=== PATIENT | male | born 1990 | race Caucasian/White ===

== ENCOUNTER 2017-11-06 00:35 | Inpatient (IN) | payer OTHER ==
[~2017-11-06] VITALS: Ht 180.3 cm; Wt 79.5 kg
[2017-11-06 01:46] LABS: AMPHET/METH SCREEN,URINE NEGATIVE (NEGATIVE); BARBITURATE SCREEN, URINE NEGATIVE (NEGATIVE); BENZODIAZEPINES SCREEN,URINE NEGATIVE (NEGATIVE); CANNABINOID SCREEN,URINE NEGATIVE (NEGATIVE); COCAINE SCREEN,URINE NEGATIVE (NEGATIVE); METHADONE SCREEN, URINE NEGATIVE (NEGATIVE); OPIATE SCREEN,URINE NEGATIVE (NEGATIVE)
[2017-11-06 01:47] LABS: PHENCYCLIDINE SCREEN,URINE NEGATIVE (NEGATIVE)
[2017-11-06 02:04] LABS: BASOPHILS % (AUTO) 0.5 % (0.0-2.0); EOSINOPHILS % (AUTO) 0.4 % (1.0-6.0); HEMATOCRIT 40.6 % (41-53); HEMOGLOBIN 14.1 g/dL (13.5-17.5); LYMPHOCYTES # (AUTO) 2.1 K/uL (1.0-4.8); MEAN CORPUSCULAR HEMOGLOBIN 31.8 pg (26.0-34.0); MEAN CORPUSCULAR HGB CONC 34.6 G/dL (31.0-37.0); MEAN CORPUSCULAR VOLUME 92 fL (80-100); MONOCYTES # (AUTO) 0.6 K/uL (0.1-1.0); MONOCYTES % (AUTO) 4.8 % (2.0-9.0); NEUTROPHILS # (AUTO) 9.5 K/uL (1.8-7.7); NEUTROPHILS % (AUTO) 77.3 % (40.0-70.0); PLATELET COUNT (AUTO) 206 K/uL (150-450); RED BLOOD CELL COUNT(AUTO) 4.42 MIL/uL (4.50-5.90); RED CELL DISTRIBUTION WIDTH 14.1 % (11.5-14.5)
[2017-11-06 02:14] LABS: ANION GAP 6 mmol/L (8-16); CALCIUM, TOTAL 8.9 mg/dL (8.8-10.5); CARBON DIOXIDE 29 mmol/L (22-29); CHLORIDE 103 mmol/L (98-107); CREATININE 0.95 mg/dL (0.60-1.30); GLOMERULAR FILTR. RATE CALC > 60 mL/min (>60); GLUCOSE,RANDOM 94 mg/dL (70-110); POTASSIUM 4.3 mmol/L (3.5-5.1); SODIUM SERUM 138 mmol/L (136-145); UREA NITROGEN, BLOOD 19 mg/dL (7-18)
[2017-11-06 02:20] LABS: ALANINE AMINOTRANSFERASE 35 U/L (12-78); ALBUMIN 4.2 g/dL (3.4-5.0); ALKALINE PHOSPHATASE 55 U/L (46-116); ASPARTATE AMINOTRANSFERASE 28 U/L (15-37); BILIRUBIN,TOTAL 0.7 mg/dL (0.1-1.0); TOTAL PROTEIN, SERUM 6.9 g/dL (6.4-8.2)
[2017-11-06] MEDS ORDERED: HALOPERIDOL 5 MG TABLET PO PRN (04:45)
[2017-11-06] MEDS ORDERED: LORazepam 2 MG TABLET PO PRN (04:45)
[2017-11-06] MEDS ORDERED: ZOLPIDEM TARTRATE 10 MG TABLET PO PRN (04:45)
[2017-11-06 06:26] VITALS: BP 124/88
[2017-11-06 06:27] VITALS: BP 124/88
[2017-11-06 06:29] VITALS: BP 124/88
[2017-11-06 08:02] VITALS: BP 124/76
[2017-11-06] MEDS ORDERED: ONDANSETRON HCL 4 MG TABLET PO PRN (11:30)
[2017-11-06] MEDS ORDERED: ACETAMINOPHEN 325 MG TABLET PO PRN (11:30)
[2017-11-06] MEDS ORDERED: LOPERAMIDE HCL 2 MG CAPSULE PO PRN (11:30)
[2017-11-06] MEDS ORDERED: CloNIDine HCL 0.1 MG TABLET PO PRN (11:30)
[2017-11-06] MEDS ORDERED: ALBUTEROL SULFATE HFA 90 MCG/PUFF 8 GM INHALER IH PRN (11:30)
[2017-11-06] MEDS ORDERED: DOCUSATE SODIUM 100 MG CAPSULE PO PRN (11:30)
[2017-11-06] MEDS ORDERED: PETROLATUM,WHITE 71 GM JELLY TP PRN (11:30)
[2017-11-06] MEDS ORDERED: MAGNESIUM HYDROXIDE SUSPENSION 30 ML UDCUP PO PRN (11:30)
[2017-11-06] MEDS ORDERED: MAG HYDROX/AL HYDROX/SIMETH ES 30 ML SUSPENSION UDCUP PO PRN (11:30)
[2017-11-06] MEDS ORDERED: IBUPROFEN 400 MG TABLET PO PRN (11:30)
[2017-11-06 16:02] VITALS: BP 118/75
[2017-11-06] MEDS ORDERED: ARIP5TAB8 PO (16:33)
[2017-11-06] MEDS ORDERED: MIRT15TA98 PO (16:33)
[2017-11-06] MEDS ORDERED: MIRTAZAPINE 15 MG TABLET PO SCH (21:00)
[2017-11-07] MEDS ORDERED: ARIPiprazole 5 MG TABLET PO SCH (09:00)
[2017-11-07] MEDS ORDERED: NICOTINE 14 MG/24 HOUR PATCH TD SCH (09:00)
[2017-11-07 09:17] LABS: APPEARANCE,URINE CLEAR (CLEAR); BILIRUBIN,URINE NEGATIVE (NEGATIVE); GLUCOSE, URINE (UA) NEGATIVE (NEGATIVE); KETONES,URINE NEGATIVE (NEGATIVE); LEUKOCYTE ESTERASE ,URINE NEGATIVE (NEGATIVE); NITRATE,URINE NEGATIVE (NEGATIVE); OCCULT BLOOD,URINE NEGATIVE (NEGATIVE); PROTEIN,URINE NEGATIVE (NEGATIVE); UROBILINOGEN,URINE 0.2 mg/dL (<=1.0)
== END 2017-11-06 21:35 | disposition short-term general hospital (02) | DRG 885 ==
LOC: EMS 00:37 → B2X 04:30
PROVIDERS: ADMIT Psychiatry & Neurology Psychiatry; ATTEND Psychiatry & Neurology Psychiatry
DX: F33.3 Major depressive disorder, recurrent, severe with psychotic symptoms (principal); R45.851 Suicidal ideations; Z81.8 Family history of other mental and behavioral disorders; F60.3 Borderline personality disorder; F19.10 Other psychoactive substance abuse, uncomplicated; F41.9 Anxiety disorder, unspecified; D72.829 Elevated white blood cell count, unspecified; F12.90 Cannabis use, unspecified, uncomplicated; Z72.89 Other problems related to lifestyle; Z71.51 Drug abuse counseling and surveillance of drug abuser
CPT/HCPCS: 99285; G0480

== ENCOUNTER 2019-02-02 22:44 | Emergency (ER) | payer OTHER ==
[~2019-02-02] VITALS: Ht 177.8 cm; Wt 80.0 kg
[~2019-02-02 22:44] MED LIST: ARIP5TAB8 PO; MIRT15TA98 PO
[2019-02-02 23:31] LABS: BASOPHILS % (AUTO) 0.9 % (0.0-2.0); EOSINOPHILS % (AUTO) 0.4 % (1.0-6.0); HEMATOCRIT 42.7 % (41-53); HEMOGLOBIN 14.1 g/dL (13.5-17.5); LYMPHOCYTES # (AUTO) 2.1 K/uL (1.0-4.8); LYMPHOCYTES % (AUTO) 14.8 % (22.0-44.0); MEAN CORPUSCULAR HEMOGLOBIN 31.4 pg (26.0-34.0); MEAN CORPUSCULAR HGB CONC 33.2 G/dL (31.0-37.0); MEAN CORPUSCULAR VOLUME 95 fL (80-100); MONOCYTES # (AUTO) 0.9 K/uL (0.1-1.0); MONOCYTES % (AUTO) 6.2 % (2.0-9.0); NEUTROPHILS # (AUTO) 10.8 K/uL (1.8-7.7); NEUTROPHILS % (AUTO) 77.7 % (40.0-70.0); PLATELET COUNT (AUTO) 250 K/uL (150-450); RED BLOOD CELL COUNT(AUTO) 4.51 MIL/uL (4.50-5.90); RED CELL DISTRIBUTION WIDTH 13.8 % (11.5-14.5)
[2019-02-02 23:38] LABS: ANION GAP 6 mmol/L (8-16); CALCIUM, TOTAL 9.1 mg/dL (8.8-10.5); CARBON DIOXIDE 28 mmol/L (22-29); CHLORIDE 101 mmol/L (98-107); CREATININE 1.11 mg/dL (0.60-1.30); GLOMERULAR FILTR. RATE CALC > 60 mL/min (>60); GLUCOSE,RANDOM 98 mg/dL (70-110); POTASSIUM 4.7 mmol/L (3.5-5.1); SODIUM SERUM 135 mmol/L (136-145); UREA NITROGEN, BLOOD 23 mg/dL (7-18)
[2019-02-02 23:45] LABS: ALANINE AMINOTRANSFERASE 42 U/L (12-78); ALBUMIN 4.4 g/dL (3.4-5.0); ALKALINE PHOSPHATASE 60 U/L (46-116); ASPARTATE AMINOTRANSFERASE 90 U/L (15-37); BILIRUBIN,TOTAL 0.6 mg/dL (0.1-1.0)
[2019-02-02 23:50] LABS: AMPHET/METH SCREEN,URINE NEGATIVE (NEGATIVE); BARBITURATE SCREEN, URINE NEGATIVE (NEGATIVE); BENZODIAZEPINES SCREEN,URINE NEGATIVE (NEGATIVE); CANNABINOID SCREEN,URINE NEGATIVE (NEGATIVE); COCAINE SCREEN,URINE NEGATIVE (NEGATIVE); METHADONE SCREEN, URINE NEGATIVE (NEGATIVE); OPIATE SCREEN,URINE NEGATIVE (NEGATIVE)
[2019-02-02 23:54] LABS: PHENCYCLIDINE SCREEN,URINE NEGATIVE (NEGATIVE)
[2019-02-03 04:12] VITALS: BP 134/86
== END 2019-02-03 06:03 | disposition short-term general hospital (02) ==
LOC: EMS 22:45 → EEVIPCON 22:45 → EMS 02-03 06:03
DX: F31.9 Bipolar disorder, unspecified (principal); E78.00 Pure hypercholesterolemia, unspecified; F12.10 Cannabis abuse, uncomplicated
CPT/HCPCS: 36415; 80053; 80307; 85025; 99285; G0480

== ENCOUNTER 2021-05-10 20:19 | Inpatient (IN) | payer MEDICAID, OTHER ==
[~2021-05-10] VITALS: Ht 177.8 cm; Wt 77.9 kg
[2021-05-10 21:40] LABS: BASOPHILS % (AUTO) 0.5 % (0.0-2.0); EOSINOPHILS % (AUTO) 0.1 % (1.0-6.0); HEMATOCRIT 47.2 % (41-53); HEMOGLOBIN 16.1 g/dL (13.5-17.5); LYMPHOCYTES # (AUTO) 1.6 K/uL (1.0-4.8); LYMPHOCYTES % (AUTO) 9.7 % (22.0-44.0); MEAN CORPUSCULAR HGB CONC 34.1 G/dL (31.0-37.0); MEAN CORPUSCULAR VOLUME 91 fL (80-100); MONOCYTES # (AUTO) 0.8 K/uL (0.1-1.0); MONOCYTES % (AUTO) 4.6 % (2.0-9.0); NEUTROPHILS # (AUTO) 13.8 K/uL (1.8-7.7); NEUTROPHILS % (AUTO) 85.1 % (40.0-70.0); PLATELET COUNT (AUTO) 270 K/uL (150-450); RED CELL DISTRIBUTION WIDTH 13.4 % (11.5-14.5)
[2021-05-10 22:08] LABS: ANION GAP 11 mmol/L (8-16); CALCIUM, TOTAL 9.2 mg/dL (8.8-10.5); CARBON DIOXIDE 27 mmol/L (22-29); CHLORIDE 101 mmol/L (98-107); CREATININE 0.95 mg/dL (0.60-1.30); GLOMERULAR FILTR. RATE CALC > 60 mL/min (>60); GLUCOSE,RANDOM 96 mg/dL (70-110); POTASSIUM 4.5 mmol/L (3.5-5.1); SODIUM SERUM 139 mmol/L (136-145); UREA NITROGEN, BLOOD 17 mg/dL (7-18)
[2021-05-10 22:14] LABS: ALANINE AMINOTRANSFERASE 34 U/L (12-78); ALBUMIN 4.5 g/dL (3.4-5.0); ALKALINE PHOSPHATASE 65 U/L (46-116); ASPARTATE AMINOTRANSFERASE 37 U/L (15-37); BILIRUBIN,TOTAL 0.9 mg/dL (0.1-1.0); TOTAL PROTEIN, SERUM 7.8 g/dL (6.4-8.2)
[2021-05-10 22:41] LABS: COVID AG,FIA SOURCE NASOPHARYNGEAL
[2021-05-10 23:33] LABS: AMPHET/METH SCREEN,URINE NEGATIVE (NEGATIVE); BARBITURATE SCREEN, URINE NEGATIVE (NEGATIVE); BENZODIAZEPINES SCREEN,URINE NEGATIVE (NEGATIVE); CANNABINOID SCREEN,URINE POSITIVE (NEGATIVE); COCAINE SCREEN,URINE NEGATIVE (NEGATIVE); METHADONE SCREEN, URINE NEGATIVE (NEGATIVE); OPIATE SCREEN,URINE NEGATIVE (NEGATIVE)
[2021-05-10 23:37] LABS: PHENCYCLIDINE SCREEN,URINE NEGATIVE (NEGATIVE)
[2021-05-11] MEDS ORDERED: LORazepam 2 MG TABLET PO PRN (08:30)
[2021-05-11] MEDS ORDERED: HALOPERIDOL 5 MG TABLET PO PRN (08:30)
[2021-05-11] MEDS ORDERED: ZOLPIDEM TARTRATE 10 MG TABLET PO PRN (08:30)
[2021-05-11 10:17] LABS: APPEARANCE,URINE CLEAR (CLEAR); BILIRUBIN,URINE NEGATIVE (NEGATIVE); GLUCOSE, URINE (UA) NEGATIVE (NEGATIVE); KETONES,URINE NEGATIVE (NEGATIVE); LEUKOCYTE ESTERASE ,URINE NEGATIVE (NEGATIVE); NITRATE,URINE NEGATIVE (NEGATIVE); OCCULT BLOOD,URINE NEGATIVE (NEGATIVE); PROTEIN,URINE NEGATIVE (NEGATIVE); UROBILINOGEN,URINE 0.2 mg/dL (<=1.0)
[2021-05-11] MEDS ORDERED: DOCUSATE SODIUM 100 MG CAPSULE PO PRN (15:15)
[2021-05-11] MEDS ORDERED: ACETAMINOPHEN 325 MG TABLET PO PRN (15:15)
[2021-05-11] MEDS ORDERED: NICOTINE 14 MG/24 HOUR PATCH TD PRN (15:15)
[2021-05-11] MEDS ORDERED: ONDANSETRON HCL 4 MG TABLET PO PRN (15:15)
[2021-05-11] MEDS ORDERED: LOPERAMIDE HCL 2 MG CAPSULE PO PRN (15:15)
[2021-05-11] MEDS ORDERED: ALBUTEROL SULFATE HFA 90 MCG/PUFF 8 GM INHALER IH PRN (15:15)
[2021-05-11] MEDS ORDERED: IBUPROFEN 400 MG TABLET PO PRN (15:15)
[2021-05-11] MEDS ORDERED: PETROLATUM,WHITE 28 GM JELLY TP PRN (15:15)
[2021-05-11] MEDS ORDERED: MAG HYDROX/AL HYDROX/SIMETH ES 30 ML SUSPENSION UDCUP PO PRN (15:15)
[2021-05-11] MEDS ORDERED: GuaiFENesin/D-METHORPHAN [SUGAR-FREE] 200-20MG/10 ML SYRUP UDCUP PO PRN (15:15)
[2021-05-11] MEDS ORDERED: CloNIDine HCL 0.1 MG TABLET PO PRN (15:15)
[2021-05-11] MEDS ORDERED: MAGNESIUM HYDROXIDE SUSPENSION 30 ML UDCUP PO PRN (15:15)
[2021-05-11 16:30] VITALS: BP 128/86
[2021-05-12 07:17] LABS: CHOL/HDL RATIO 3.6 (4.2-7.3)
[2021-05-12 09:22] VITALS: BP 120/77
== END 2021-05-12 13:35 | disposition home or self-care (01) | DRG 753 ==
LOC: EMS 21:55 → 3EI 05-11 16:10
PROVIDERS: ADMIT Psychiatry & Neurology Child & Adolescent Psychiatry; ATTEND Psychiatry & Neurology Child & Adolescent Psychiatry
DX: F31.2 Bipolar disorder, current episode manic severe with psychotic features (principal); R45.850 Homicidal ideations; D72.829 Elevated white blood cell count, unspecified; E78.5 Hyperlipidemia, unspecified; F10.10 Alcohol abuse, uncomplicated; Z20.822 Contact with and (suspected) exposure to COVID-19; Y90.0 Blood alcohol level of less than 20 mg/100 ml; F12.10 Cannabis abuse, uncomplicated; E78.00 Pure hypercholesterolemia, unspecified; Z71.51 Drug abuse counseling and surveillance of drug abuser
CPT/HCPCS: 80053; 80061; 81003; 85025; 99285; G0480

== ENCOUNTER 2021-11-18 10:08 | Inpatient (IN) | payer MEDICAID, OTHER ==
[~2021-11-18] VITALS: Ht 177.8 cm; Wt 77.3 kg
[2021-11-18 11:31] LABS: BASOPHILS % (AUTO) 0.7 % (0.0-2.0); EOSINOPHILS % (AUTO) 0.8 % (1.0-6.0); HEMATOCRIT 43.8 % (41-53); HEMOGLOBIN 14.8 g/dL (13.5-17.5); LYMPHOCYTES # (AUTO) 1.8 K/uL (1.0-4.8); LYMPHOCYTES % (AUTO) 21.9 % (22.0-44.0); MEAN CORPUSCULAR HEMOGLOBIN 30.9 pg (26.0-34.0); MEAN CORPUSCULAR HGB CONC 33.7 G/dL (31.0-37.0); MEAN CORPUSCULAR VOLUME 92 fL (80-100); MONOCYTES # (AUTO) 0.6 K/uL (0.1-1.0); MONOCYTES % (AUTO) 7.4 % (2.0-9.0); NEUTROPHILS # (AUTO) 5.8 K/uL (1.8-7.7); NEUTROPHILS % (AUTO) 69.2 % (40.0-70.0); PLATELET COUNT (AUTO) 255 K/uL (150-450); RED BLOOD CELL COUNT(AUTO) 4.78 MIL/uL (4.50-5.90); RED CELL DISTRIBUTION WIDTH 13.7 % (11.5-14.5)
[2021-11-18 11:40] LABS: ANION GAP 7 mmol/L (8-16); CARBON DIOXIDE 30 mmol/L (22-29); CHLORIDE 103 mmol/L (98-107); CREATININE 0.85 mg/dL (0.60-1.30); GLUCOSE,RANDOM 88 mg/dL (70-110); POTASSIUM 4.1 mmol/L (3.5-5.1); SODIUM SERUM 140 mmol/L (136-145); UREA NITROGEN, BLOOD 13 mg/dL (7-18)
[2021-11-18 11:41] LABS: CALCIUM, TOTAL 9.4 mg/dL (8.8-10.5)
[2021-11-18 11:43] LABS: GLOMERULAR FILTR. RATE CALC > 60 mL/min (>60)
[2021-11-18 11:44] LABS: AMPHET/METH SCREEN,URINE NEGATIVE (NEGATIVE); BARBITURATE SCREEN, URINE NEGATIVE (NEGATIVE); BENZODIAZEPINES SCREEN,URINE NEGATIVE (NEGATIVE); CANNABINOID SCREEN,URINE POSITIVE (NEGATIVE); COCAINE SCREEN,URINE NEGATIVE (NEGATIVE); METHADONE SCREEN, URINE NEGATIVE (NEGATIVE); OPIATE SCREEN,URINE NEGATIVE (NEGATIVE)
[2021-11-18 11:46] LABS: ALANINE AMINOTRANSFERASE 34 U/L (12-78); ALBUMIN 4.2 g/dL (3.4-5.0); ALKALINE PHOSPHATASE 64 U/L (46-116); ASPARTATE AMINOTRANSFERASE 30 U/L (15-37); BILIRUBIN,TOTAL 1.1 mg/dL (0.1-1.0); TOTAL PROTEIN, SERUM 7.3 g/dL (6.4-8.2)
[2021-11-18 11:49] LABS: PHENCYCLIDINE SCREEN,URINE NEGATIVE (NEGATIVE)
[2021-11-18 12:00] LABS: COVID AG,FIA SOURCE NASOPHARYNGEAL
[2021-11-18] MEDS ORDERED: DIAZEPAM 5 MG/ML 2 ML SYRINGE IM ONE (15:30)
[2021-11-18] MEDS ORDERED: DiphenhydrAMINE HCL 50 MG/ML VIAL IM ONE (15:30)
[2021-11-18] MEDS ORDERED: HALOPERIDOL LACTATE 5 MG/ML VIAL IM ONE (15:30)
[2021-11-18] MEDS: ZOLPIDEM TARTRATE 10 MG TABLET PO PRN (18:26)
[2021-11-18 23:47] VITALS: BP 150/96
[2021-11-18] MEDS: LORazepam 2 MG TABLET PO PRN (23:53)
[2021-11-18] MEDS: OLANZapine 5 MG RAPDIS TABLET PO PRN (23:54)
[2021-11-19 08:14] VITALS: BP 118/66
[2021-11-19] MEDS: LORazepam 2 MG TABLET PO PRN ×2 (08:18→17:24)
[2021-11-19] MEDS: OLANZapine 5 MG RAPDIS TABLET PO PRN (08:18)
[2021-11-19] MEDS ORDERED: PROMETHAZINE HCL 25 MG TABLET PO PRN (10:45)
[2021-11-19] MEDS ORDERED: MAG HYDROX/AL HYDROX/SIMETH ES 30 ML SUSPENSION UDCUP PO PRN (10:45)
[2021-11-19] MEDS ORDERED: HydrOXYzine PAMOATE 50 MG CAPSULE PO PRN (10:45)
[2021-11-19] MEDS ORDERED: ACETAMINOPHEN 325 MG TABLET PO PRN (10:45)
[2021-11-19] MEDS ORDERED: LOPERAMIDE HCL 2 MG CAPSULE PO PRN (10:45)
[2021-11-19] MEDS ORDERED: GuaiFENesin/D-METHORPHAN [SUGAR-FREE] 200-20MG/10 ML SYRUP UDCUP PO PRN (10:45)
[2021-11-19] MEDS ORDERED: MAGNESIUM HYDROXIDE SUSPENSION 30 ML UDCUP PO PRN (10:45)
[2021-11-19] MEDS ORDERED: TUBERCULIN, PURIFIED PROTEIN DERIVATIVE 5 TU/0.1 ML SYRINGE ID ONE (10:45)
[2021-11-19] MEDS ORDERED: PALIPERIDONE PALMITATE 234 MG/1.5 ML SYRINGE IM ONE (11:45)
[2021-11-19] MEDS: THIAMINE 100 MG TABLET PO SCH (17:23)
[2021-11-19 20:18] VITALS: BP 102/62
[2021-11-19] MEDS: DIVALPROEX SODIUM 500 MG ER TABLET PO SCH (20:30)
[2021-11-19] MEDS: MELATONIN 5 MG TABLET PO SCH (20:30)
[2021-11-19] MEDS: ZOLPIDEM TARTRATE 10 MG TABLET PO PRN (20:31)
[2021-11-19] MEDS: OLANZapine 5 MG RAPDIS TABLET PO SCH (20:31)
[2021-11-20 07:11] LABS: CHOL/HDL RATIO 4.4 (4.2-7.3); FREE T4 (FREE THYROXINE) 1.58 ng/dL (0.76-1.46); THYROID STIMULATING HORMONE 0.6 uIU/mL (0.36-3.74)
[2021-11-20 07:32] LABS: HEMOGLOBIN A1C 5.3 % (3.8-5.6)
[2021-11-20 08:25] VITALS: BP 101/62
[2021-11-20] MEDS: FOLIC ACID 1 MG TABLET PO SCH ×2 (08:43→09:00)
[2021-11-20] MEDS: THIAMINE 100 MG TABLET PO SCH ×3 (08:43→16:16)
[2021-11-20] MEDS: OMEGA-3/DHA/EPA/FISH OIL 1,000 MG CAPSULE PO SCH ×2 (08:43→09:00)
[2021-11-20] MEDS: NALTREXONE HCL 50 MG TABLET PO SCH ×2 (08:43→09:00)
[2021-11-20] MEDS: LORazepam 2 MG TABLET PO PRN (08:43)
[2021-11-20] MEDS: MULTIVITAMINS WITH MINERALS, THERAPEUTIC TABLET PO SCH ×2 (08:43→09:00)
[2021-11-20] MEDS ORDERED: NALT50TA PO (13:39)
[2021-11-20] MEDS ORDERED: MELA5TAB40 PO (13:39)
[2021-11-20] MEDS ORDERED: OLAN5TAB94 PO (13:39)
[2021-11-20] MEDS ORDERED: DIVA-80 PO (13:39)
[2021-11-20] MEDS ORDERED: OMEG-108 PO (13:39)
[2021-11-20 20:16] VITALS: BP 111/67
[2021-11-20] MEDS: MELATONIN 5 MG TABLET PO SCH (20:35)
[2021-11-20] MEDS: OLANZapine 5 MG RAPDIS TABLET PO SCH (20:35)
[2021-11-20] MEDS: DIVALPROEX SODIUM 500 MG ER TABLET PO SCH (20:35)
[2021-11-21] MEDS: MULTIVITAMINS WITH MINERALS, THERAPEUTIC TABLET PO SCH (08:37)
[2021-11-21] MEDS: OMEGA-3/DHA/EPA/FISH OIL 1,000 MG CAPSULE PO SCH (08:37)
[2021-11-21] MEDS: NALTREXONE HCL 50 MG TABLET PO SCH (08:37)
[2021-11-21] MEDS: FOLIC ACID 1 MG TABLET PO SCH (08:37)
[2021-11-21] MEDS: THIAMINE 100 MG TABLET PO SCH (08:38)
[2021-11-23] MEDS ORDERED: PALIPERIDONE PALMITATE 156 MG/ML SYRINGE IM ONE (09:00)
== END 2021-11-21 10:30 | disposition home or self-care (01) | DRG 750 ==
LOC: EMS 10:08 → B3A 22:22
PROVIDERS: ADMIT Psychiatry & Neurology Psychiatry; ATTEND Psychiatry & Neurology Psychiatry
DX: F25.9 Schizoaffective disorder, unspecified (principal); R45.850 Homicidal ideations; E78.00 Pure hypercholesterolemia, unspecified; Z20.822 Contact with and (suspected) exposure to COVID-19; J45.909 Unspecified asthma, uncomplicated; Z55.9 Problems related to education and literacy, unspecified; Z59.9 Problem related to housing and economic circumstances, unspecified; Z63.9 Problem related to primary support group, unspecified; Z65.3 Problems related to other legal circumstances; Z87.891 Personal history of nicotine dependence
CPT/HCPCS: 80053; 80061; 83036; 84439; 84443; 85025; 86592; 99285; G0480; J1200; J1630; Q9967

== ENCOUNTER 2022-01-25 13:19 | Inpatient (IN) | payer MEDICAID, OTHER ==
[~2022-01-25] VITALS: Ht 177.8 cm; Wt 81.4 kg
[~2022-01-25 13:19] MED LIST changes: -ARIP5TAB8 PO; +DIVA-80 PO; +MELA5TAB40 PO; -MIRT15TA98 PO; +NALT50TA PO; +OLAN5TAB94 PO; +OMEG-135 PO
[2022-01-25 14:19] LABS: BASOPHILS % (AUTO) 1.1 % (0.0-2.0); EOSINOPHILS % (AUTO) 0.1 % (1.0-6.0); HEMATOCRIT 43.5 % (41-53); HEMOGLOBIN 14.3 g/dL (13.5-17.5); LYMPHOCYTES # (AUTO) 1.5 K/uL (1.0-4.8); LYMPHOCYTES % (AUTO) 17.8 % (22.0-44.0); MEAN CORPUSCULAR HEMOGLOBIN 30.7 pg (26.0-34.0); MEAN CORPUSCULAR HGB CONC 32.9 G/dL (31.0-37.0); MEAN CORPUSCULAR VOLUME 93 fL (80-100); MONOCYTES # (AUTO) 0.4 K/uL (0.1-1.0); MONOCYTES % (AUTO) 5.2 % (2.0-9.0); NEUTROPHILS # (AUTO) 6.3 K/uL (1.8-7.7); NEUTROPHILS % (AUTO) 75.8 % (40.0-70.0); PLATELET COUNT (AUTO) 240 K/uL (150-450); RED BLOOD CELL COUNT(AUTO) 4.66 MIL/uL (4.50-5.90); RED CELL DISTRIBUTION WIDTH 13.8 % (11.5-14.5)
[2022-01-25 14:26] LABS: AMPHET/METH SCREEN,URINE NEGATIVE (NEGATIVE); BARBITURATE SCREEN, URINE NEGATIVE (NEGATIVE); BENZODIAZEPINES SCREEN,URINE NEGATIVE (NEGATIVE); CANNABINOID SCREEN,URINE POSITIVE (NEGATIVE); COCAINE SCREEN,URINE NEGATIVE (NEGATIVE); METHADONE SCREEN, URINE NEGATIVE (NEGATIVE); OPIATE SCREEN,URINE NEGATIVE (NEGATIVE)
[2022-01-25 14:27] LABS: ANION GAP 7 mmol/L (8-16); CALCIUM, TOTAL 8.9 mg/dL (8.8-10.5); CARBON DIOXIDE 29 mmol/L (22-29); CHLORIDE 101 mmol/L (98-107); CREATININE 1.04 mg/dL (0.60-1.30); GLUCOSE,RANDOM 94 mg/dL (70-110); POTASSIUM 4.2 mmol/L (3.5-5.1); SODIUM SERUM 137 mmol/L (136-145); UREA NITROGEN, BLOOD 14 mg/dL (7-18)
[2022-01-25 14:29] LABS: GLOMERULAR FILTR. RATE CALC > 60 mL/min (>60)
[2022-01-25 14:29] LABS: PHENCYCLIDINE SCREEN,URINE NEGATIVE (NEGATIVE)
[2022-01-25 14:34] LABS: ALANINE AMINOTRANSFERASE 34 U/L (12-78); ALBUMIN 4.2 g/dL (3.4-5.0); ALKALINE PHOSPHATASE 55 U/L (46-116); ASPARTATE AMINOTRANSFERASE 48 U/L (15-37); BILIRUBIN,TOTAL 0.7 mg/dL (0.1-1.0)
[2022-01-25] MEDS ORDERED: HALOPERIDOL 5 MG TABLET PO ONE (15:00)
[2022-01-25] MEDS ORDERED: LORazepam 2 MG TABLET PO ONE (15:00)
[2022-01-25 16:27] LABS: COVID AG,FIA SOURCE NASAL SWAB
[2022-01-25] MEDS ORDERED: DiphenhydrAMINE HCL 25 MG CAPSULE PO ONE (20:45)
[2022-01-25] MEDS ORDERED: HALOPERIDOL 5 MG TABLET PO PRN (22:30)
[2022-01-26 00:48] LABS: APPEARANCE,URINE CLEAR (CLEAR); BILIRUBIN,URINE NEGATIVE (NEGATIVE); GLUCOSE, URINE (UA) NEGATIVE (NEGATIVE); KETONES,URINE NEGATIVE (NEGATIVE); LEUKOCYTE ESTERASE ,URINE NEGATIVE (NEGATIVE); NITRATE,URINE NEGATIVE (NEGATIVE); OCCULT BLOOD,URINE NEGATIVE (NEGATIVE); PROTEIN,URINE 30-70 mg/dL (NEGATIVE); SPECIFIC GRAVITIY, URINE 1.024 (1.003-1.030); UROBILINOGEN,URINE <=1.0 mg/dL (<=1.0)
[2022-01-26 01:50] VITALS: BP 119/75
[2022-01-26 10:01] VITALS: BP 128/68
[2022-01-26] MEDS ORDERED: LOPERAMIDE HCL 2 MG CAPSULE PO PRN (15:45)
[2022-01-26] MEDS ORDERED: IBUPROFEN 600 MG TABLET PO PRN (15:45)
[2022-01-26] MEDS ORDERED: ACETAMINOPHEN 325 MG TABLET PO PRN (15:45)
[2022-01-26] MEDS ORDERED: OMEPRAZOLE 20 MG CAPSULE PO PRN (15:45)
[2022-01-26] MEDS ORDERED: CloNIDine HCL 0.1 MG TABLET PO PRN (15:45)
[2022-01-26] MEDS ORDERED: ONDANSETRON HCL 4 MG TABLET PO PRN (15:45)
[2022-01-26] MEDS ORDERED: MAGNESIUM HYDROXIDE SUSPENSION 30 ML UDCUP PO PRN (15:45)
[2022-01-26] MEDS ORDERED: MAG HYDROX/AL HYDROX/SIMETH ES 30 ML SUSPENSION UDCUP PO PRN (15:45)
[2022-01-26] MEDS ORDERED: ALBUTEROL SULFATE HFA 90 MCG/PUFF 8 GM INHALER IH PRN (15:45)
[2022-01-26] MEDS ORDERED: PETROLATUM,WHITE 28 GM JELLY TP PRN (15:45)
[2022-01-26] MEDS ORDERED: BENZOCAINE/MENTHOL LOZENGE PO PRN (15:45)
[2022-01-26] MEDS ORDERED: DOCUSATE SODIUM 100 MG CAPSULE PO PRN (15:45)
[2022-01-26 20:25] VITALS: BP 120/59
[2022-01-26] MEDS: DIVALPROEX SODIUM 500 MG ER TABLET PO SCH (20:41)
[2022-01-26] MEDS: OLANZapine 5 MG RAPDIS TABLET PO SCH (20:41)
[2022-01-27 08:35] VITALS: BP 110/61
[2022-01-27] MEDS: BACITRACIN 28 GM OINTMENT TP PRN (16:19)
[2022-01-27] MEDS: ZOLPIDEM TARTRATE 10 MG TABLET PO PRN (20:14)
[2022-01-27] MEDS: OLANZapine 5 MG RAPDIS TABLET PO SCH (20:14)
[2022-01-27] MEDS: DIVALPROEX SODIUM 500 MG ER TABLET PO SCH (20:14)
[2022-01-27 20:26] VITALS: BP 103/62
[2022-01-28] MEDS: BACITRACIN 28 GM OINTMENT TP PRN ×2 (02:04→21:07)
[2022-01-28 08:43] VITALS: BP 101/61
[2022-01-28] MEDS ORDERED: OLAN5TAB94 PO (13:32)
[2022-01-28] MEDS ORDERED: DIVA-80 PO (13:32)
[2022-01-28] MEDS: ZOLPIDEM TARTRATE 10 MG TABLET PO PRN (20:12)
[2022-01-28] MEDS: DIVALPROEX SODIUM 500 MG ER TABLET PO SCH (20:12)
[2022-01-28] MEDS: OLANZapine 5 MG RAPDIS TABLET PO SCH (20:12)
[2022-01-28 20:18] VITALS: BP 119/64
[2022-01-29] MEDS: LORazepam 1 MG TABLET PO PRN ×2 (00:50→21:11)
[2022-01-29 08:43] VITALS: BP 108/62
[2022-01-29 20:20] VITALS: BP 108/64
[2022-01-29] MEDS: DIVALPROEX SODIUM 500 MG ER TABLET PO SCH (21:11)
[2022-01-29] MEDS: ZOLPIDEM TARTRATE 10 MG TABLET PO PRN (21:11)
[2022-01-29] MEDS: OLANZapine 5 MG RAPDIS TABLET PO SCH (21:11)
[2022-01-30] MEDS: LORazepam 1 MG TABLET PO PRN (03:17)
[2022-01-30 08:19] VITALS: BP 120/68
== END 2022-01-30 17:38 | disposition home or self-care (01) | DRG 750 ==
LOC: EMS 13:22 → B3A 01-26 02:51
PROVIDERS: ADMIT Psychiatry & Neurology Psychiatry; ATTEND Psychiatry & Neurology Psychiatry
DX: F25.9 Schizoaffective disorder, unspecified (principal); E78.00 Pure hypercholesterolemia, unspecified; F41.9 Anxiety disorder, unspecified; G47.00 Insomnia, unspecified; F31.9 Bipolar disorder, unspecified; K59.00 Constipation, unspecified; Z20.822 Contact with and (suspected) exposure to COVID-19; F17.210 Nicotine dependence, cigarettes, uncomplicated; F12.90 Cannabis use, unspecified, uncomplicated; Z79.899 Other long term (current) drug therapy; Z71.6 Tobacco abuse counseling
CPT/HCPCS: 80053; 81003; 85025; 99285; G0480

== ENCOUNTER 2022-02-09 00:19 | Inpatient (IN) | payer MEDICAID, OTHER ==
[~2022-02-09] VITALS: Ht 177.8 cm; Wt 86.6 kg
[~2022-02-09 00:19] MED LIST changes: -MELA5TAB40 PO; -NALT50TA PO; -OMEG-135 PO
[2022-02-09 01:50] LABS: BASOPHILS % (AUTO) 1.1 % (0.0-2.0); EOSINOPHILS % (AUTO) 1.5 % (1.0-6.0); HEMATOCRIT 43.9 % (41-53); HEMOGLOBIN 14.6 g/dL (13.5-17.5); LYMPHOCYTES # (AUTO) 2.3 K/uL (1.0-4.8); LYMPHOCYTES % (AUTO) 19.3 % (22.0-44.0); MEAN CORPUSCULAR HGB CONC 33.3 G/dL (31.0-37.0); MEAN CORPUSCULAR VOLUME 93 fL (80-100); MONOCYTES # (AUTO) 0.8 K/uL (0.1-1.0); MONOCYTES % (AUTO) 6.7 % (2.0-9.0); NEUTROPHILS # (AUTO) 8.4 K/uL (1.8-7.7); NEUTROPHILS % (AUTO) 71.4 % (40.0-70.0); PLATELET COUNT (AUTO) 257 K/uL (150-450); RED BLOOD CELL COUNT(AUTO) 4.72 MIL/uL (4.50-5.90)
[2022-02-09 02:01] LABS: ANION GAP 7 mmol/L (8-16); CALCIUM, TOTAL 8.9 mg/dL (8.8-10.5); CARBON DIOXIDE 27 mmol/L (22-29); CHLORIDE 102 mmol/L (98-107); CREATININE 0.98 mg/dL (0.60-1.30); GLUCOSE,RANDOM 135 mg/dL (70-110); POTASSIUM 4.5 mmol/L (3.5-5.1); SODIUM SERUM 136 mmol/L (136-145); UREA NITROGEN, BLOOD 20 mg/dL (7-18)
[2022-02-09 02:03] LABS: ALANINE AMINOTRANSFERASE 31 U/L (12-78); ALBUMIN 3.9 g/dL (3.4-5.0); ALKALINE PHOSPHATASE 58 U/L (46-116); ASPARTATE AMINOTRANSFERASE 33 U/L (15-37); BILIRUBIN,TOTAL 0.5 mg/dL (0.1-1.0); TOTAL PROTEIN, SERUM 6.9 g/dL (6.4-8.2)
[2022-02-09 02:04] LABS: GLOMERULAR FILTR. RATE CALC > 60 mL/min (>60)
[2022-02-09 02:05] LABS: BARBITURATE SCREEN, URINE NEGATIVE (NEGATIVE); CANNABINOID SCREEN,URINE POSITIVE (NEGATIVE)
[2022-02-09 02:06] LABS: AMPHET/METH SCREEN,URINE NEGATIVE (NEGATIVE); BENZODIAZEPINES SCREEN,URINE NEGATIVE (NEGATIVE); COCAINE SCREEN,URINE NEGATIVE (NEGATIVE); METHADONE SCREEN, URINE NEGATIVE (NEGATIVE); OPIATE SCREEN,URINE NEGATIVE (NEGATIVE); PHENCYCLIDINE SCREEN,URINE NEGATIVE (NEGATIVE)
[2022-02-09] MEDS ORDERED: HALOPERIDOL 5 MG TABLET PO PRN (02:15)
[2022-02-09 02:24] LABS: COVID AG,FIA SOURCE NASAL SWAB
[2022-02-09 04:18] VITALS: BP 143/89
[2022-02-09] MEDS ORDERED: IBUPROFEN 600 MG TABLET PO PRN (06:30)
[2022-02-09] MEDS ORDERED: MAGNESIUM HYDROXIDE SUSPENSION 30 ML UDCUP PO PRN (06:30)
[2022-02-09] MEDS ORDERED: ONDANSETRON HCL 4 MG TABLET PO PRN (06:30)
[2022-02-09] MEDS ORDERED: MAG HYDROX/AL HYDROX/SIMETH ES 30 ML SUSPENSION UDCUP PO PRN (06:30)
[2022-02-09] MEDS ORDERED: BENZOCAINE/MENTHOL LOZENGE PO PRN (06:30)
[2022-02-09] MEDS ORDERED: CloNIDine HCL 0.1 MG TABLET PO PRN (06:30)
[2022-02-09] MEDS ORDERED: OMEPRAZOLE 20 MG CAPSULE PO PRN (06:30)
[2022-02-09] MEDS ORDERED: LOPERAMIDE HCL 2 MG CAPSULE PO PRN (06:30)
[2022-02-09] MEDS ORDERED: BACITRACIN 28 GM OINTMENT TP PRN (06:30)
[2022-02-09] MEDS ORDERED: ACETAMINOPHEN 325 MG TABLET PO PRN (06:30)
[2022-02-09] MEDS ORDERED: PETROLATUM,WHITE 28 GM JELLY TP PRN (06:30)
[2022-02-09] MEDS ORDERED: DOCUSATE SODIUM 100 MG CAPSULE PO PRN (06:30)
[2022-02-09 08:03] VITALS: BP 133/78
[2022-02-09 16:03] VITALS: BP 113/76
[2022-02-09] MEDS: LORazepam 1 MG TABLET PO PRN (17:46)
[2022-02-10 08:11] VITALS: BP 129/82
[2022-02-10 16:49] VITALS: BP 122/68
[2022-02-10] MEDS: ZOLPIDEM TARTRATE 10 MG TABLET PO PRN (21:11)
[2022-02-11 08:05] VITALS: BP 115/63
[2022-02-11] MEDS: RisperiDONE 3 MG TABLET PO SCH ×2 (09:00→16:17)
[2022-02-11] MEDS: LORazepam 1 MG TABLET PO PRN ×2 (11:09→18:15)
[2022-02-11] MEDS: ALBUTEROL SULFATE HFA 90 MCG/PUFF 8 GM INHALER IH PRN ×3 (12:34→18:34)
[2022-02-11 16:18] VITALS: BP 110/61
[2022-02-11] MEDS: ZOLPIDEM TARTRATE 10 MG TABLET PO PRN (20:30)
[2022-02-12] MEDS: LORazepam 1 MG TABLET PO PRN ×3 (06:56→19:35)
[2022-02-12 08:00] VITALS: BP 121/69
[2022-02-12] MEDS: RisperiDONE 3 MG TABLET PO SCH ×2 (08:55→16:33)
[2022-02-12] MEDS: LITHIUM CARBONATE 300 MG CAPSULE PO SCH ×2 (08:55→16:33)
[2022-02-12] MEDS: ALBUTEROL SULFATE HFA 90 MCG/PUFF 8 GM INHALER IH PRN ×2 (08:55→18:15)
[2022-02-12 11:00] VITALS: BP 121/70
[2022-02-12 16:47] VITALS: BP 148/90
[2022-02-12] MEDS: GuaiFENesin SR 600 MG ER TABLET PO SCH (19:33)
[2022-02-12 20:32] VITALS: BP 130/80
[2022-02-13] MEDS: ZOLPIDEM TARTRATE 10 MG TABLET PO PRN ×2 (00:03→20:20)
[2022-02-13] MEDS: LORazepam 1 MG TABLET PO PRN ×2 (06:06→16:24)
[2022-02-13] MEDS: RisperiDONE 3 MG TABLET PO SCH ×2 (08:26→16:21)
[2022-02-13] MEDS: GuaiFENesin SR 600 MG ER TABLET PO SCH (08:26)
[2022-02-13] MEDS: LITHIUM CARBONATE 300 MG CAPSULE PO SCH ×2 (08:26→16:21)
[2022-02-13] MEDS: ALBUTEROL SULFATE HFA 90 MCG/PUFF 8 GM INHALER IH PRN ×2 (08:36→16:26)
[2022-02-13 09:11] VITALS: BP 118/57
[2022-02-13 16:13] VITALS: BP 119/62
[2022-02-14] MEDS: ALBUTEROL SULFATE HFA 90 MCG/PUFF 8 GM INHALER IH PRN ×2 (04:50→13:19)
[2022-02-14] MEDS: LORazepam 1 MG TABLET PO PRN ×3 (05:14→16:54)
[2022-02-14] MEDS: RisperiDONE 3 MG TABLET PO SCH (08:08)
[2022-02-14] MEDS: GuaiFENesin SR 600 MG ER TABLET PO SCH (08:08)
[2022-02-14] MEDS: LITHIUM CARBONATE 300 MG CAPSULE PO SCH ×2 (08:08→16:05)
[2022-02-14 08:25] VITALS: BP 129/77
[2022-02-14] MEDS: RisperiDONE CONC 3 MG/3 ML SOLUTION ORAL.SYG PO SCH (16:05)
[2022-02-14 16:39] VITALS: BP 119/75
[2022-02-14] MEDS: OXYMETAZOLINE HCL 0.05% 15 ML NASAL SPRAY NASAL PRN (17:17)
[2022-02-14] MEDS: ZOLPIDEM TARTRATE 10 MG TABLET PO PRN (20:24)
[2022-02-15 04:28] LABS: COVID AG,FIA SOURCE NASAL SWAB
[2022-02-15] MEDS: OXYMETAZOLINE HCL 0.05% 15 ML NASAL SPRAY NASAL PRN ×2 (05:17→14:03)
[2022-02-15] MEDS: LITHIUM CARBONATE 300 MG CAPSULE PO SCH ×2 (07:57→16:42)
[2022-02-15] MEDS: RisperiDONE CONC 3 MG/3 ML SOLUTION ORAL.SYG PO SCH ×2 (07:57→16:42)
[2022-02-15] MEDS: LORazepam 1 MG TABLET PO PRN ×2 (07:57→15:17)
[2022-02-15] MEDS: GuaiFENesin SR 600 MG ER TABLET PO SCH (07:57)
[2022-02-15 08:53] VITALS: BP 120/74
[2022-02-15] MEDS: ALBUTEROL SULFATE HFA 90 MCG/PUFF 8 GM INHALER IH PRN ×3 (09:16→22:20)
[2022-02-15 16:57] VITALS: BP 113/70
[2022-02-15] MEDS: ZOLPIDEM TARTRATE 10 MG TABLET PO PRN (20:42)
[2022-02-16] MEDS: LORazepam 1 MG TABLET PO PRN ×2 (05:12→13:54)
[2022-02-16] MEDS: ALBUTEROL SULFATE HFA 90 MCG/PUFF 8 GM INHALER IH PRN ×2 (05:14→13:55)
[2022-02-16 08:00] VITALS: BP 156/99
[2022-02-16] MEDS: RisperiDONE CONC 3 MG/3 ML SOLUTION ORAL.SYG PO SCH ×2 (08:25→17:26)
[2022-02-16] MEDS: LITHIUM CARBONATE 300 MG CAPSULE PO SCH ×2 (08:25→17:26)
[2022-02-16] MEDS: OXYMETAZOLINE HCL 0.05% 15 ML NASAL SPRAY NASAL PRN ×2 (08:25→17:44)
[2022-02-16 16:00] VITALS: BP 118/73
[2022-02-16] MEDS: ZOLPIDEM TARTRATE 10 MG TABLET PO PRN (21:11)
[2022-02-17] MEDS: ALBUTEROL SULFATE HFA 90 MCG/PUFF 8 GM INHALER IH PRN ×2 (06:09→07:55)
[2022-02-17] MEDS: OXYMETAZOLINE HCL 0.05% 15 ML NASAL SPRAY NASAL PRN ×2 (06:09→16:11)
[2022-02-17] MEDS: LORazepam 1 MG TABLET PO PRN ×3 (07:54→20:31)
[2022-02-17] MEDS: LITHIUM CARBONATE 300 MG CAPSULE PO SCH ×2 (07:54→16:12)
[2022-02-17] MEDS: RisperiDONE CONC 3 MG/3 ML SOLUTION ORAL.SYG PO SCH ×2 (07:54→16:11)
[2022-02-17 08:00] VITALS: BP 141/95
[2022-02-17 16:14] VITALS: BP 133/80
[2022-02-17] MEDS: ZOLPIDEM TARTRATE 10 MG TABLET PO PRN (20:31)
[2022-02-18 08:17] VITALS: BP 137/85
[2022-02-18] MEDS: LITHIUM CARBONATE 300 MG CAPSULE PO SCH ×2 (09:11→18:05)
[2022-02-18] MEDS: RisperiDONE CONC 3 MG/3 ML SOLUTION ORAL.SYG PO SCH ×2 (09:11→18:05)
[2022-02-18] MEDS: ALBUTEROL SULFATE HFA 90 MCG/PUFF 8 GM INHALER IH PRN (14:41)
[2022-02-18] MEDS: LORazepam 1 MG TABLET PO PRN (14:41)
[2022-02-18 16:05] VITALS: BP 117/73
[2022-02-18] MEDS: SODIUM CHLORIDE 0.65% 44 ML NASAL SPRAY NASAL PRN (20:31)
[2022-02-19 08:33] VITALS: BP 120/74
[2022-02-19] MEDS: RisperiDONE CONC 3 MG/3 ML SOLUTION ORAL.SYG PO SCH ×2 (09:40→17:22)
[2022-02-19] MEDS: LITHIUM CARBONATE 300 MG CAPSULE PO SCH ×2 (09:40→17:22)
[2022-02-19] MEDS: FLUTICASONE PROPIONATE 50 MCG/SPRAY 16 GM NASAL SPRAY NASAL SCH (09:40)
[2022-02-19] MEDS: LORazepam 1 MG TABLET PO PRN (14:14)
[2022-02-19 16:00] VITALS: BP 108/65
[2022-02-19] MEDS: ZOLPIDEM TARTRATE 10 MG TABLET PO PRN (20:15)
[2022-02-20 08:18] VITALS: BP 137/90
[2022-02-20] MEDS: FLUTICASONE PROPIONATE 50 MCG/SPRAY 16 GM NASAL SPRAY NASAL SCH (08:23)
[2022-02-20] MEDS: RisperiDONE CONC 3 MG/3 ML SOLUTION ORAL.SYG PO SCH ×2 (08:23→16:22)
[2022-02-20] MEDS: LITHIUM CARBONATE 300 MG CAPSULE PO SCH ×2 (08:23→16:22)
[2022-02-20] MEDS: LORazepam 1 MG TABLET PO PRN (14:34)
[2022-02-20] MEDS: ALBUTEROL SULFATE HFA 90 MCG/PUFF 8 GM INHALER IH PRN (14:37)
[2022-02-20 16:03] VITALS: BP 130/71
[2022-02-20] MEDS: ZOLPIDEM TARTRATE 10 MG TABLET PO PRN (20:38)
[2022-02-21] MEDS: ALBUTEROL SULFATE HFA 90 MCG/PUFF 8 GM INHALER IH PRN (05:45)
[2022-02-21] MEDS: LITHIUM CARBONATE 300 MG CAPSULE PO SCH ×2 (08:17→16:06)
[2022-02-21] MEDS: FLUTICASONE PROPIONATE 50 MCG/SPRAY 16 GM NASAL SPRAY NASAL SCH (08:18)
[2022-02-21] MEDS: RisperiDONE CONC 3 MG/3 ML SOLUTION ORAL.SYG PO SCH ×2 (08:19→16:06)
[2022-02-21 09:23] VITALS: BP 123/78
[2022-02-21] MEDS: LORazepam 1 MG TABLET PO PRN (15:27)
[2022-02-21 16:05] VITALS: BP 152/77
[2022-02-21] MEDS: ZOLPIDEM TARTRATE 10 MG TABLET PO PRN (20:12)
[2022-02-21] MEDS: SODIUM CHLORIDE 0.65% 44 ML NASAL SPRAY NASAL PRN (20:12)
[2022-02-22 06:41] LABS: COVID AG,FIA SOURCE NASAL SWAB
[2022-02-22] MEDS: FLUTICASONE PROPIONATE 50 MCG/SPRAY 16 GM NASAL SPRAY NASAL SCH (08:13)
[2022-02-22] MEDS: LITHIUM CARBONATE 300 MG CAPSULE PO SCH ×2 (08:13→16:25)
[2022-02-22] MEDS: RisperiDONE CONC 3 MG/3 ML SOLUTION ORAL.SYG PO SCH ×2 (08:14→16:26)
[2022-02-22 08:56] VITALS: BP 138/91
[2022-02-22] MEDS: LORazepam 1 MG TABLET PO PRN (12:34)
[2022-02-22 16:06] VITALS: BP 153/93
[2022-02-22] MEDS: SODIUM CHLORIDE 0.65% 44 ML NASAL SPRAY NASAL PRN (18:46)
[2022-02-22] MEDS: ALBUTEROL SULFATE HFA 90 MCG/PUFF 8 GM INHALER IH PRN (18:48)
[2022-02-22] MEDS: ZOLPIDEM TARTRATE 10 MG TABLET PO PRN (20:56)
[2022-02-23 08:09] VITALS: BP 132/90
[2022-02-23] MEDS: RisperiDONE CONC 3 MG/3 ML SOLUTION ORAL.SYG PO SCH ×2 (09:08→17:00)
[2022-02-23] MEDS: LITHIUM CARBONATE 300 MG CAPSULE PO SCH ×2 (09:08→17:11)
[2022-02-23] MEDS: FLUTICASONE PROPIONATE 50 MCG/SPRAY 16 GM NASAL SPRAY NASAL SCH (09:08)
[2022-02-23] MEDS: SODIUM CHLORIDE 0.65% 44 ML NASAL SPRAY NASAL PRN (14:00)
[2022-02-23] MEDS: ALBUTEROL SULFATE HFA 90 MCG/PUFF 8 GM INHALER IH PRN (14:00)
[2022-02-23 16:03] VITALS: BP 124/78
[2022-02-23] MEDS: LORazepam 1 MG TABLET PO PRN (18:36)
[2022-02-23] MEDS: ZOLPIDEM TARTRATE 10 MG TABLET PO PRN (21:36)
[2022-02-24] MEDS: ALBUTEROL SULFATE HFA 90 MCG/PUFF 8 GM INHALER IH PRN (07:45)
[2022-02-24] MEDS: LORazepam 1 MG TABLET PO PRN ×2 (07:45→16:01)
[2022-02-24] MEDS: FLUTICASONE PROPIONATE 50 MCG/SPRAY 16 GM NASAL SPRAY NASAL SCH (07:45)
[2022-02-24] MEDS: LITHIUM CARBONATE 300 MG CAPSULE PO SCH ×2 (07:45→16:02)
[2022-02-24] MEDS: RisperiDONE CONC 3 MG/3 ML SOLUTION ORAL.SYG PO SCH ×2 (07:45→16:01)
[2022-02-24 08:25] VITALS: BP 135/89
[2022-02-24 16:32] VITALS: BP 108/64
[2022-02-24] MEDS: ZOLPIDEM TARTRATE 10 MG TABLET PO PRN (21:37)
[2022-02-25] MEDS: LITHIUM CARBONATE 300 MG CAPSULE PO SCH ×2 (07:39→17:06)
[2022-02-25] MEDS: FLUTICASONE PROPIONATE 50 MCG/SPRAY 16 GM NASAL SPRAY NASAL SCH (07:39)
[2022-02-25] MEDS: RisperiDONE CONC 3 MG/3 ML SOLUTION ORAL.SYG PO SCH ×2 (07:39→17:06)
[2022-02-25 08:08] VITALS: BP 135/84
[2022-02-25] MEDS ORDERED: RisperiDONE MICROSPHERES 50 MG/2 ML SYRINGE IM SCH (09:00)
[2022-02-25] MEDS ORDERED: LITH300C3 PO (12:12)
[2022-02-25] MEDS ORDERED: RISPC50 IM (12:12)
[2022-02-25] MEDS: LORazepam 1 MG TABLET PO PRN (14:46)
[2022-02-25] MEDS: ALBUTEROL SULFATE HFA 90 MCG/PUFF 8 GM INHALER IH PRN (15:40)
[2022-02-25] MEDS: SODIUM CHLORIDE 0.65% 44 ML NASAL SPRAY NASAL PRN (15:41)
[2022-02-25 16:06] VITALS: BP 134/73
[2022-02-25] MEDS: ZOLPIDEM TARTRATE 10 MG TABLET PO PRN (20:03)
[2022-02-26] MEDS: LITHIUM CARBONATE 300 MG CAPSULE PO SCH (08:45)
[2022-02-26] MEDS: RisperiDONE CONC 3 MG/3 ML SOLUTION ORAL.SYG PO SCH (08:45)
[2022-02-26 09:23] VITALS: BP 109/65
[2022-02-26] MEDS: ALBUTEROL SULFATE HFA 90 MCG/PUFF 8 GM INHALER IH PRN (09:40)
== END 2022-02-26 11:35 | disposition home or self-care (01) | DRG 750 ==
LOC: EMS 00:20 → 3EC 02:52
PROVIDERS: ADMIT Psychiatry & Neurology Psychiatry; ATTEND Psychiatry & Neurology Psychiatry
DX: F25.9 Schizoaffective disorder, unspecified (principal); E78.00 Pure hypercholesterolemia, unspecified; F31.9 Bipolar disorder, unspecified; F41.9 Anxiety disorder, unspecified; G47.00 Insomnia, unspecified; K59.00 Constipation, unspecified; F17.210 Nicotine dependence, cigarettes, uncomplicated; Z20.822 Contact with and (suspected) exposure to COVID-19; Z79.899 Other long term (current) drug therapy; Z71.6 Tobacco abuse counseling
CPT/HCPCS: 80053; 80178; 85025; 87081; 99285; G0480; J2794; J3535